=== PATIENT | female | born 1955 | race Caucasian/White ===

== ENCOUNTER 2024-03-27 16:55 | Inpatient (IN) | payer MEDICARE ==
[~2024-03-27] VITALS: Ht 152.4 cm; Wt 89.0 kg
[2024-03-27] VITALS (44 sets, daily range): BP systolic 58–125; BP diastolic 31–100
[~2024-03-27 16:55] MED LIST: ACETAMINOPHEN325 MG PO; ALPRAZOLAM0.5 M2 PO; AMOX/K CLAV875 M1 PO; BIOTIN PO; BUMETANIDE1 MG PO; BUSPIRONE5 MG PO; CYCLOBENZAPRINE10 MG PO; GLIPIZIDE10 M3 PO; JARDIANCE25 MG PO; LIPITOR40 M1 PO; LISINOPRIL20 M1 PO; LISINOPRIL5 MG PO; LOPID600 MG PO; METFORMIN HYD1000 MG PO; POTASSIUM CHLO10 MEQ PO; VENLAFAXINE150 M1 PO
--- NOTE | 2024-03-27 16:58 | NUR ---
PT TO ROOM VIA WC
[2024-03-27] MEDS ORDERED: SODIUM CHLORIDE 0.9% 1,000 ML IV STA (17:07)
[2024-03-27] MEDS ORDERED: ONDANSETRON HCl 4 MG/2 ML SDV IV STA (17:07)
[2024-03-27 17:23] LABS: BASO% 0.8 % (0-3); EOS% 2.3 % (0-8); HEMATOCRIT 47.1 % (37.0-47.0); HEMOGLOBIN 14.8 g/dl (12.0-16.0); IMMATURE GRANULOCYTES 0.2 % (0.0-5.0); LYMPH% 18.3 % (15-41); MEAN CELL VOLUME 97.1 fL CALC (80.0-100.0); MEAN CORPUSCULAR HGB 30.5 pG CALC (26.0-32.0); MEAN CORPUSCULAR HGB CONC 31.4 g/dL CAL (32.0-36.0); NEUT# 4.59 thou/uL (2.00-7.15); NEUT% 70.4 % (42-76); RED BLOOD COUNT 4.85 mill/uL (4.20-5.60); RED CELL DISTRI WIDTH 14.7 % (11.5-15.5)
[2024-03-27 17:35] LABS: ALBUMIN 4.4 g/dL (3.2-5.0); ALKALINE PHOSPHATASE 89 u/l (38-126); ANION GAP 22 (6-22 (CALC)); BUN 46 mg/dL (8-23); CARBON DIOXIDE 22 mmol/l (22-30); CHLORIDE 94 mmol/l (95-108); LIPASE 168 u/l (23-300); POTASSIUM 4.6 mmol/l (3.5-5.1); SODIUM 135 mmol/l (137-146); TOTAL PROTEIN 7.8 g/dL (6.3-8.2)
[2024-03-27 17:50] LABS: BILIRUBIN, TOTAL 1.2 mg/dL (0.02-1.3); BUN/CREATININE RATIO 20 (12-20 (CALC)); CREATININE 2.3 mg/dL (0.5-1.0); ESTIMATED GFR 23 ML/MIN (>=90 (CALC)); SGOT/AST 39 u/l (9-36)
[2024-03-27] MEDS ORDERED: SODIUM CHLORIDE 0.9% 1,000 ML IV ONE (17:50)
[2024-03-27] MEDS ORDERED: SODIUM CHLORIDE 0.9% 250 ML IV PRN (18:45)
[2024-03-27] MEDS ORDERED: NOREPINEPHRINE BITARTRATE 4 MG in DEXTROSE 5% 250 ML IV ONE (18:45)
--- NOTE | 2024-03-27 18:58 | NUR ---
LEVO DRIP STARTED AT THIS TIME; DR GUERRA AT BEDSIDE
--- NOTE | 2024-03-27 19:00 | NUR ---
RECIEVED REPORT FROM ISRAEL VERNON.
--- NOTE | 2024-03-27 21:50 | NUR ---
PT REPORT GIVEN TO LILIAN VERNON.
[2024-03-27] MEDS ORDERED: MAGNESIUM HYDROXIDE 30 ML UDC PO PRN (21:55)
[2024-03-27] MEDS ORDERED: ACETAMINOPHEN 325 MG/TAB PO PRN (21:55)
[2024-03-27] MEDS ORDERED: ELIQUIS5 MG PO (22:18)
[2024-03-27] MEDS ORDERED: ALPRAZolam 0.5 MG/TAB PO PRN (22:20)
--- NOTE | 2024-03-27 22:22 | NUR ---
PT MOVED TO ROOM #15 IN ED ICU HOLD.
[2024-03-27] MEDS ORDERED: APIXABAN BASE 5 MG TAB PO SCH (22:30)
--- NOTE | 2024-03-27 22:30 | NUR ---
PT ARRIVED @ APPROX 2220 VIA W/C. PT IS A + O x4. EDUCATED PT ON ICU STATUS, PT IS ON LEVOPHED GTT CURRENTLY @ 6 MCG/MIN. BP IS 106/67. PT HAS NO COMPLAINTS, DENIES PAIN, DENIES N/V. PRIOR TO TRANSPORT TO ROOM, PT WAS ASSISTED TO BSC, LESS THAN 20 ML OUTPUT. PT ENCOURAGED TO INTAKE FLUIDS, WATER PROVIDED. PT INSTRUCTED TO CALL FOR ASSISTANCE TO GET UP. CALL LIGHT IN REACH
[2024-03-27 22:49] LABS: URINE BLOOD DIPSTICK Small (NEGATIVE); URINE GLUCOSE - DIPSTICK 100 mg/dL (NEGATIVE); URINE KETONE Trace mg/dL (NEGATIVE); URINE NITRITE - DIPSTICK Negative (Negative); URINE PH 5.5 (4.5-8.0); URINE PROTEIN - DIPSTICK >=300 mg/dL (NEG-TRACE); URINE SPECIFIC GRAVITY 1.025
[2024-03-27 22:50] LABS: URINE COLOR Yellow; URINE LEUK ESTERASE Small (NEGATIVE)
[2024-03-27 22:56] LABS: URINE BACTERIA MODERATE hpf; URINE SQUAMOUS EPITHELIAL CELL MODERATE EPI/hpf (0-FEW); URINE WBC 50-100 WBC/hpf (0-5)
[2024-03-27 22:58] LABS: URINE YEAST FEW hpf
[2024-03-27 22:59] LABS: URINE HYALINE CAST FEW lpf (NONE-RARE)
--- NOTE | 2024-03-27 23:38 | NUR ---
CONSULT PLACED W/ DR. LOPEZ ANSWERING SERVICE FOR MORNING PER DR ROSARIO ORDERS.
[2024-03-27] MEDS ORDERED: SODIUM CHLORIDE 0.9% 1,000 ML IV PRN (23:55)
[2024-03-28] VITALS (69 sets, daily range): BP systolic 30–139; BP diastolic 14–107
--- NOTE | 2024-03-28 00:30 | NUR ---
REPORT RECEIVED FROM JANEEN QUIN[place]NA. ASSESSMENT COMPLETED. PATIENT ALERT AND ORIENTED X 4. DENIES PAIN AT THIS TIME. LUNGS CLEAR TO ASCULTATION. BREATHING EVEN AND UNLABORED ON 1L NC. NC FOR COMFORT ONLY, PATIENT DOES NOT USE OXYGEN AT HOME. DENIES CONCERNS AT THIS TIME. ALL NEEDS MET. SAFETY MEASURES IN PLACE INCLUDING BED IN LOW POSITION AND CALL LIGHT RESTING NEXT TO L HAND. VITAL SIGNS STABLE. WILL CONTINUE WITH PLAN OF CARE.
--- NOTE | 2024-03-28 01:49 | NUR ---
CONSULT ORDERED IN CHART FOR DR. RUFFIN, PROVIDER AWARE, SEE PREVIOUS NOTES.
--- NOTE | 2024-03-28 01:52 | NUR ---
SPRING, PATIENT'S DAUGHTER CONTACT INFO:
--- NOTE | 2024-03-28 02:07 | NUR ---
PATIENT APPEARS TO BE RESTING WITH EYES CLOSED. VSS. NO APPARENT DISTRESS NOTED. WILL CONTINUE WITH PLAN OF CARE
--- NOTE | 2024-03-28 03:48 | NUR ---
PATIENT SITTING UP IN BED RESTING WITH EYES CLOSED. LAB AT BEDSIDE. PATIENT DENIES CONCERNS AT THIS TIME. AFEBRILE 97.8. NO APPARENT DISTRESS NOTED. WILL CONTINUE WITH PLAN OF CARE.
[2024-03-28 04:20] LABS: HEMATOCRIT 48.2 % (37.0-47.0); HEMOGLOBIN 15.2 g/dl (12.0-16.0); MEAN CELL VOLUME 98.8 fL CALC (80.0-100.0); MEAN CORPUSCULAR HGB 31.1 pG CALC (26.0-32.0); MEAN CORPUSCULAR HGB CONC 31.5 g/dL CAL (32.0-36.0); RED BLOOD COUNT 4.88 mill/uL (4.20-5.60); RED CELL DISTRI WIDTH 14.8 % (11.5-15.5)
[2024-03-28 04:29] LABS: ALBUMIN 4.2 g/dL (3.2-5.0); BILIRUBIN, TOTAL 1.3 mg/dL (0.02-1.3); CREATININE 2.9 mg/dL (0.5-1.0); POTASSIUM 4.6 mmol/l (3.5-5.1); TOTAL PROTEIN 7.5 g/dL (6.3-8.2)
[2024-03-28] MEDS ORDERED: NOREPINEPHRINE BITARTRATE 4 MG in DEXTROSE 5% 250 ML IV PRN (05:40)
--- NOTE | 2024-03-28 05:59 | NUR ---
PATIENT ASSISTED TO BSC. NO APPARENT DISTRESS NOTED. VSS. WILL CONTINUE WITH PLAN OF CARE.
[2024-03-28] MEDS ORDERED: ONDANSETRON HCl 4 MG/2 ML SDV IV PRN (06:15)
[2024-03-28] MEDS ORDERED: DEXTROSE 250 ML IV PRN (06:20)
[2024-03-28] MEDS ORDERED: DEXTROSE 50% 50 ML/SYR IV PRN (06:20)
[2024-03-28] MEDS ORDERED: INSULIN LISPRO 100 UNITS/ML ML SC SCH (07:00)
--- NOTE | 2024-03-28 07:42 | NUR ---
REPORT RECEIVED FROM NIGHT NURSE. PATIENT AXO X3. S1S2 NOTED, NORMAL SINUS ON TELE. LUNG SOUNDS CLEAR, NO COUGH OR SOB NOTED, ON ROOM AIR. ABDOMEN SOFT, NON DISTENDED, NON TENDER, WITH ACTIVE BOWEL SOUNDS. UPPER PULSES STRONG, LOWER WEAK. SKIN WARM AND DRY, SCATTERED BRUISING NOTED TO UPPER EXTREMITIES, SKIN TEAR NOTED TO LEFT UPPER EXTREMITIY, DRESSING CDI. CALL LIGHT IN REACH.
--- NOTE | 2024-03-28 08:10 | NUR ---
DR. ALVA AT BEDSIDE TO ASSESS PATIENT AND DISCUSS PLAN OF CARE.
[2024-03-28] MEDS ORDERED: VENLAFAXINE HYDROCHLORIDE 75 MG/CAP PO SCH (09:00)
--- NOTE | 2024-03-28 09:35 | NUR ---
CALL MADE TO DR. LOPEZ'S OFFICE FOR NEPHROLOGY CONSULT.
--- NOTE | 2024-03-28 10:00 | NUR ---
PATIENT SITTING UP IN BED. ALL NEEDS MET. CALL LIGHT IN REACH.
[2024-03-28] MEDS ORDERED: DULOXETINE HYDR30 MG PO (10:20)
[2024-03-28] MEDS ORDERED: CORDARONE/200 MG/TAB PO (10:20)
[2024-03-28] MEDS ORDERED: TOPROL XL25 M1 PO (10:21)
[2024-03-28] MEDS ORDERED: BUMETANIDE1 MG PO (10:22)
[2024-03-28] MEDS ORDERED: TRAMADOL HYDROC50 M1 PO (10:22)
[2024-03-28] MEDS ORDERED: CARVEDILOL3.125 MG PO (10:22)
--- NOTE | 2024-03-28 12:00 | NUR ---
PATIENT SITTING UP IN BED. FAMILY AT BEDSIDE. ALL NEEDS MET. CALL LIGHT IN REACH.
--- NOTE | 2024-03-28 12:55 | NUR ---
PATIENT HAS NOT VOIDED SINCE MIDNIGHT. JAMAR SCANNED PATIENT, SCAN SHOWED 22ML. MD NOTIFIED.
--- NOTE | 2024-03-28 14:00 | NUR ---
PATIENT SITTING UP IN BED WATCHING TV. DENIES NEEDS AT THIS TIME. CALL LIGHT IN REACH.
[2024-03-28] MEDS ORDERED: SODIUM CHLORIDE 0.9% 1,000 ML IV SCH ×2 (14:30→19:20)
--- NOTE | 2024-03-28 16:00 | NUR ---
PATIENT SITTING UP TALKING ON THE PHONE. DENIES NEEDS AT THIS TIME. CALL LIGHT IN REACH.
--- NOTE | 2024-03-28 18:00 | NUR ---
PATIENT SITTING UP IN BED. ALL NEEDS MET. CALL LIGHT IN REACH.
--- NOTE | 2024-03-28 18:06 | NUR ---
CALLED PATIENT'S SISTER AND PROVIDED AND UPDATE.
[2024-03-28] MEDS ORDERED: MIDODRINE HCL 5 MG TAB PO SCH (19:15)
--- NOTE | 2024-03-28 19:20 | NUR ---
awake. denies distress. media monitor shows sinus rhythm 1st degree avb ivcd. po fluids taken fair. voids per bsc. fall precautions cont. bed alarm activated.
[2024-03-28] MEDS ORDERED: ATORVASTATIN CALCIUM 40 MG/TAB PO SCH (21:00)
--- NOTE | 2024-03-28 22:00 | NUR ---
awake. using cell phone. denies distress.
[2024-03-29] VITALS (52 sets, daily range): BP systolic 62–133; BP diastolic 32–117
--- NOTE | 2024-03-29 00:01 | NUR ---
awake. watching videos on phone. denies distress.
--- NOTE | 2024-03-29 02:00 | NUR ---
eyes closed. no distress. case monitor shows sinus rhythm 1st degree avb ivcd.
--- NOTE | 2024-03-29 03:30 | NUR ---
[place] [facility] [place]. bp cuff readjusted 84/59. levo restarted.
--- NOTE | 2024-03-29 03:45 | NUR ---
lab here. blood drawn.
--- NOTE | 2024-03-29 05:47 | NUR ---
awake. watching videos on cell phone. monitoring specialist shows sinus rhythm 1st degree avb ivcd.
[2024-03-29 05:54] LABS: ALBUMIN 3.7 g/dL (3.2-5.0); CREATININE 2.9 mg/dL (0.5-1.0); MAGNESIUM 1.5 mg/dL (1.6-2.3); POTASSIUM 4.2 mmol/l (3.5-5.1)
--- NOTE | 2024-03-29 06:55 | NUR ---
PT LAYING IN BED AWAKE WATCHING TV, PT IS A&O X3, PUPILS PERRL, NORMAL S1 S2 HEART SOUNDS, TELE MONITOR IN PLACE, RESP EVEN AND UNLABORED, LUNG SOUNDS ARE CLEAR, ABD DISTENDED AND SOFT WITH ACTIVE BOWEL SOUNDS, 20G RAC IV WITH FLUIDS AND MEDICATIONS INFUSING PRESCRIBED, STRONG RADIAL PULSES, WEAK PEDAL PULSES, SAFETY MEASURES REINFORCED, CALL PARKER WITHIN REACH
--- NOTE | 2024-03-29 07:05 | NUR ---
PT ASSISTED TO THE BSC, PT AMBULATES WITH A SLOW STEADY GAIT, PT REMINDED TO CALL FOR ASSISTANCE, PT VERBALIZED UNDERSTANDING, CALL PARKER WITHIN REACH
--- NOTE | 2024-03-29 07:15 | NUR ---
DR ALVA AT BEDSIDE DISCUSSING PLAN OF CARE
--- NOTE | 2024-03-29 08:30 | NUR ---
PT ASSISTED FROM THE BSC TO THE BED, PT AMBULATED WITH A SLOW STEADY GAIT, PT TOLERATED WELL, PT DENIES ANY NEEDS AT THIS TIME, SAFETY MEASURES REINFORCED, CALL PARKER WITHIN REACH
[2024-03-29] MEDS ORDERED: CEFEPIME HYDROCHLORIDE 1 GM in SODIUM CHLORIDE 0.9% 50 ML IV SCH (09:00)
[2024-03-29] MEDS ORDERED: MAGNESIUM SULFATE HEPTAHYDRATE 50 ML IV SCH (09:00)
--- NOTE | 2024-03-29 09:30 | NUR ---
PT LAYING IN BED RESTING PLAYING ON HER PHONE, LEVO DRIP TITRATED PER PROTOCOL, PT TOLERATING WELL, NO S/S OF DISTRESS AT THIS TIME, SAFETY MEASURES IN PLACE, CALL PARKER WITHIN REACH
--- NOTE | 2024-03-29 09:55 | NUR ---
LEVO DRIP TITRATED BACK UP TO PRIOR DOSE PT DID NOT TOELRATE THE DECREASE, PT DENIES ANY NEEDS AT THIS TIME, NO S/S OF DISTRESS AT THIS TIME, CALL PARKER WITHIN REACH
--- NOTE | 2024-03-29 11:35 | NUR ---
DR LOPEZ AT BEDSIDE DISCUSSING PLAN OF CARE
[2024-03-29] MEDS ORDERED: AMIODARONE 200 MG/TAB PO SCH (12:00)
--- NOTE | 2024-03-29 12:00 | NUR ---
PT ASSISTED TO THE BSC, PT AMBULATED WITH A SLOW STEADY GAIT, PT HAS MOMENTS OF CONFUSING BUT IS EASILY REDIRECTED, NO S/S OF DISTRESS AT THIS TIME, PT DENIES ANY NEEDS, PT REMINDED TO CALL FOR ASSISTANCE, PT VERBALIZED UNDERSTANDING, CALL PARKER WITHIN REACH
--- NOTE | 2024-03-29 13:15 | NUR ---
VISITOR AT BEDSIDE
--- NOTE | 2024-03-29 13:22 | NUR ---
PT REMAINS ON THE BSC PER HER REQUEST, ASSISTANCE OFFERED TO ASSIST PT BACK TO BED, PT REMAINS ON LEVO DRIP, NO SIGNS OF DISTRESS, PT REMINDED TO CALL FOR ASSISTANCE, PT VERBALIZED UNDERSTANGIN, CALL PARKER WITHIN REACH
--- NOTE | 2024-03-29 14:35 | NUR ---
PT ASSITED FROM THE BSC BACK TO BED, PT AMBULATED WITH A SLOW STEADY GAIT, PT TOLERATED WELL, SAFETY MEASURES REINFORCED , CALL PARKER WITHIN REACH, PT REMINDED TO CALL FOR ASSISTANCE, PT VERBALIZED UNDERSTANDING, CALL PARKER WITHIN REACH
--- NOTE | 2024-03-29 15:14 | NUR ---
PT RESTING WITH EYES CLOSED, NO S/S OF DISTRESS, CALL PARKER WITHIN REACH
--- NOTE | 2024-03-29 16:45 | NUR ---
SETUP ASSISTANCE PROVIDED WITH DINNER TRAY, PT VERBALIZES NO NEEDS AT THIS TIME, CALL PARKER WITHIN REACH
--- NOTE | 2024-03-29 17:55 | NUR ---
PT SITTING UP IN THE BED WATCHING TV, PT DENIES ANY NEEDS AT THIS TIME, CALL PARKER WITHIN REACH
--- NOTE | 2024-03-29 19:05 | NUR ---
Performed bedside report with nurse. Patient was pleasant with no complaints of pain. Educated the patient on levophed; the purpose and the plan of care.
--- NOTE | 2024-03-29 20:49 | NUR ---
Spoke to Dr. Arias @2037 about patient current status of the levophed in the patient's right 20G IV and unable to discontinue since 03/27/2024. Dr. Arias ordered IV fluids to increase from 50mL/hr to 100mL hr in attempt to discontinue levophed. Upon assessment, patient's bilateral lower extremities are purple and blue and she states that it is very cold. Pulses are +1 bilateral pedal pulses and cold. Dr. Arias is aware.
[2024-03-29] MEDS ORDERED: SODIUM CHLORIDE 0.9% 1,000 ML IV ONE (22:15)
--- NOTE | 2024-03-29 22:15 | NUR ---
PATIENT ASSISTED TO BSC; AND WENT TO BED. PATIENT ASKED FOR A WARM BLANKET ON THE HER FEET PATIENT STATES IT IS COLD.
[2024-03-30] VITALS (59 sets, daily range): BP systolic 76–122; BP diastolic 49–100
--- NOTE | 2024-03-30 01:04 | NUR ---
DECREASED LEVO FROM 2 MCG TO 1 MCG. PATIENT'S SBP >100 AND MAP >65. PATIENT IS ASLEEP.
--- NOTE | 2024-03-30 01:40 | NUR ---
Stopped the patient's levophed.
--- NOTE | 2024-03-30 02:10 | NUR ---
STOPPED LEVOPHED AND SBP WAS IN THE 70s; STARTED LEVOPHED AT 1MCG; @0210 PT IS CURRENTLY ON 0.6MCG OF LEVO.
[2024-03-30 05:26] LABS: BASO% 0.7 % (0-3); EOS% 4.2 % (0-8); IMMATURE GRANULOCYTES 0.1 % (0.0-5.0); LYMPH% 17.9 % (15-41); MEAN CELL VOLUME 97.6 fL CALC (80.0-100.0); MEAN CORPUSCULAR HGB 31.3 pG CALC (26.0-32.0); MEAN CORPUSCULAR HGB CONC 32.1 g/dL CAL (32.0-36.0); MONO% 11.6 % (2-13); NEUT# 4.38 thou/uL (2.00-7.15); NEUT% 65.5 % (42-76); RED BLOOD COUNT 4.18 mill/uL (4.20-5.60); RED CELL DISTRI WIDTH 14.9 % (11.5-15.5)
[2024-03-30 05:33] LABS: ALBUMIN 3.9 g/dL (3.2-5.0); BILIRUBIN, TOTAL 0.9 mg/dL (0.02-1.3); CREATININE 2.3 mg/dL (0.5-1.0); HEMATOCRIT 40.8 % (37.0-47.0); HEMOGLOBIN 13.1 g/dl (12.0-16.0); MAGNESIUM 1.8 mg/dL (1.6-2.3); POTASSIUM 3.8 mmol/l (3.5-5.1); TOTAL PROTEIN 7.1 g/dL (6.3-8.2)
--- NOTE | 2024-03-30 06:00 | NUR ---
Titrated levo to 0.2mcg and SBP in 70s. Raised levo to 0.4mcg.
--- NOTE | 2024-03-30 06:50 | NUR ---
DR. ALVA AT BEDSIDE TO ASSESS PATIENT AND DISCUSS PLAN OF CARE.
--- NOTE | 2024-03-30 07:07 | NUR ---
Spoke to Dr. Day about the patient's levo titration down and vital signs thyroughout the night. Dr. Day placed new orders for a bolus.
[2024-03-30] MEDS ORDERED: SODIUM CHLORIDE 0.9% 500 ML IV SCH (07:30)
--- NOTE | 2024-03-30 07:49 | NUR ---
REPORT RECEIVED FROM NIGHT NURSE. PATIENT AXO X3. S1S2 NOTED, NORMAL SINUS ON TELE. LUNG SOUNDS CLEAR, DRY COUGH NOTED, NO SOB NOTED. ABDOMEN SOFT, NON DISTENDED, NON TENDER, WITH ACTIVE BOWEL SOUNDS. UPPER PULSES STRONG, LOWER WEAK. SKIN WARM AND DRY. SCATTERED BRUISING NOTED TO UPPER EXTREMITIES, SKIN TEAR NOTED TO LEFT UPPER EXTREMITITY. DRESSING TO LEFT UPPER ARM CDI. CALL LIGHT IN REACH.
[2024-03-30] MEDS ORDERED: SODIUM CHLORIDE 0.9% 1,000 ML IV PRN (08:50)
--- NOTE | 2024-03-30 10:00 | NUR ---
PATIENT SITTING UP AT SIDE OF BED. DENIES NEEDS AT THIS TIME. CALL LIGHT IN REACH.
--- NOTE | 2024-03-30 10:29 | NUR ---
PATIENT FAMILY AT BEDSIDE.
--- NOTE | 2024-03-30 12:00 | NUR ---
PATIENT SITTING UP IN BED RESTING. ALL NEEDS MET. CALL LIGHT IN REACH.
--- NOTE | 2024-03-30 14:00 | NUR ---
PATIENT RESTING IN BED WITH EYES CLOSED. DENIES NEEDS AT THIS TIME. CALL LIGHT IN REACH.
--- NOTE | 2024-03-30 16:00 | NUR ---
PATIENT SITTING UP IN BED WATCHING TV. ALL NEEDS MET. CALL LIGHT IN REACH.
--- NOTE | 2024-03-30 18:00 | NUR ---
PATIENT LAYING DOWN IN BED RESTING WITH EYES CLOSED. ALL NEEDS MET. CALL LIGHT IN REACH.
--- NOTE | 2024-03-30 19:05 | NUR ---
awake. denies distress. cardiac specialist shows sinus rhythm 1st degree avb ivcd. ivf infusing well. po fluids taken fair. voids per bsc. fall precautions cont.
--- NOTE | 2024-03-30 20:10 | NUR ---
up to bsc then to chair.
--- NOTE | 2024-03-30 22:00 | NUR ---
remains in bedside chasir. denies distress.
[2024-03-31] VITALS (25 sets, daily range): BP systolic 92–117; BP diastolic 57–90
--- NOTE | 2024-03-31 00:30 | NUR ---
to bedside commode then to bed. denies c/o.
--- NOTE | 2024-03-31 02:00 | NUR ---
eyes closed. no distress.
--- NOTE | 2024-03-31 04:00 | NUR ---
awake. watching videos on cell phone. denies distress.
--- NOTE | 2024-03-31 05:06 | NUR ---
lab here. blood drawn.
[2024-03-31 05:11] LABS: HEMATOCRIT 44.6 % (37.0-47.0); HEMOGLOBIN 13.9 g/dl (12.0-16.0); MEAN CELL VOLUME 98.5 fL CALC (80.0-100.0); MEAN CORPUSCULAR HGB 30.7 pG CALC (26.0-32.0); MEAN CORPUSCULAR HGB CONC 31.2 g/dL CAL (32.0-36.0); RED BLOOD COUNT 4.53 mill/uL (4.20-5.60); RED CELL DISTRI WIDTH 15.3 % (11.5-15.5)
[2024-03-31 05:27] LABS: ALBUMIN 3.6 g/dL (3.2-5.0); CREATININE 1.8 mg/dL (0.5-1.0); MAGNESIUM 1.7 mg/dL (1.6-2.3); POTASSIUM 4.5 mmol/l (3.5-5.1)
--- NOTE | 2024-03-31 07:45 | NUR ---
PT SEEN AWAKE, ALERT, ORIENTED X 3. NO COMPLAINTS, NO DISTRESS. PT OFF LEVOPHED SINCE YESTERDAY WITH NORMAL BP READINGS. DR ALVA HAS SEEN PT, KVO IVF. PT POSSIBLE DC LATER TODAY.
--- NOTE | 2024-03-31 10:40 | NUR ---
PT SITTING UP IN BED, USES CELL PHONE OFTEN. NO COMPLAINTS, NO DISTRESS. BP 105 SYSTOLIC.
[2024-03-31] MEDS ORDERED: MIDODRINE5 MG PO (12:40)
--- NOTE | 2024-03-31 12:45 | NUR ---
IVs REMOVED, TELE REMOVED. THIS AFTER PT WAS SEEN BY DR ALVA AND HE AGREED TO DISCHARGE HER. BP REMAINS GREATER THAN 100 SYSTOLIC, PT NOT SYMPTOMATIC.
[2024-03-31] MEDS ORDERED: CIPROFLOXACN250 M1 PO (13:00)
--- NOTE | 2024-03-31 14:00 | NUR ---
PT VERBALIZED UNDERSTANDING OF DC INSTRUCTIONS, TAKEN TO VEHICLE TO BE DRIVEN HOME BY BROTHER. PT LEAVES [facility] IN STABLE CONDITION, BLOOD PRESSURE WNL.
== END 2024-03-31 14:00 | disposition home health service (06) | DRG 871 ==
LOC: ED 16:55 → ED-I 19:50 → ED 20:04 → ED-I 20:05
PROVIDERS: Emergency Medicine; Internal Medicine; Internal Medicine Nephrology; ADMIT Internal Medicine; ATTEND Internal Medicine
PROC: 3E033XZ Introduction of Vasopressor into Peripheral Vein, Percutaneous Approach (ICD-10-PCS; principal; 2024-03-27)
DX: A41.9 Sepsis, unspecified organism (principal); N17.0 Acute kidney failure with tubular necrosis; R65.21 Severe sepsis with septic shock; N39.0 Urinary tract infection, site not specified; E87.1 Hypo-osmolality and hyponatremia; I13.0 Hypertensive heart and chronic kidney disease with heart failure and stage 1 through stage 4 chronic kidney disease, or unspecified chronic kidney disease; I25.810 Atherosclerosis of coronary artery bypass graft(s) without angina pectoris; E86.0 Dehydration; I95.9 Hypotension, unspecified; E11.22 Type 2 diabetes mellitus with diabetic chronic kidney disease; N18.31 Chronic kidney disease, stage 3a; I50.9 Heart failure, unspecified; E05.90 Thyrotoxicosis, unspecified without thyrotoxic crisis or storm; B96.89 Other specified bacterial agents as the cause of diseases classified elsewhere; E83.42 Hypomagnesemia; E83.39 Other disorders of phosphorus metabolism; Z95.1 Presence of aortocoronary bypass graft; Z79.01 Long term (current) use of anticoagulants; Z79.84 Long term (current) use of oral hypoglycemic drugs; Z20.822 Contact with and (suspected) exposure to COVID-19
CPT/HCPCS: J0692; J0696; J1815; J2405; J3475